=== PATIENT | male | born 1965 | race Caucasian/White ===

== ENCOUNTER 2016-10-14 01:56 | Inpatient (IN) | payer BC, OTHER ==
[~2016-10-14] VITALS: Ht 180.3 cm; Wt 122.8 kg
[~2016-10-14 01:56] MED LIST: DEPA250T2 PO; DILT180C56 PO; LAMO25 PO; LEVA500T PO; LEVE500 PO; LOTR15T TOP; PHEN100 PO; RISP0.252 OR; RISPM2 PO; SERO200T PO
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
[2016-10-14] MEDS ORDERED: SERO400T PO (02:26)
[2016-10-14] MEDS ORDERED: DIVA500T3 PO (02:26)
[2016-10-14] MEDS ORDERED: LOVA20TA PO (02:26)
[2016-10-14] MEDS ORDERED: RISP2TAB37 PO (02:26)
[2016-10-14] MEDS ORDERED: KEPP750T PO (02:26)
[2016-10-14] MEDS ORDERED: LAMO25CH CHEW (02:26)
[2016-10-14] MEDS ORDERED: DULO1CAP PO (02:26)
[2016-10-14 02:59] VITALS: BP 140/87; PULSE 102; RESP 18; O2SAT 96
[2016-10-14] MEDS ORDERED: DILA100C PO (04:21)
[2016-10-14] MEDS ORDERED: DORZ2SOL EACH EYE (04:45)
[2016-10-14] MEDS ORDERED: LATA0.002 EACH EYE (04:45)
[2016-10-14] MEDS ORDERED: CLOB0.055 TOPICAL (04:49)
[2016-10-14 06:21] VITALS: BP 161/82; PULSE 92; RESP 18; O2SAT 96
[2016-10-14] MEDS: DIVALPROEX SODIUM E.R. 500 MG TAB PO SCH ×2 (09:00→20:21)
[2016-10-14] MEDS ORDERED: risperiDONE 1 MG TAB PO SCH (09:00)
[2016-10-14] MEDS: lamoTRIgine 25 MG TAB PO SCH (09:00)
[2016-10-14] MEDS: levETIRAcetam 500 MG TAB PO SCH ×2 (09:00→20:20)
[2016-10-14] MEDS ORDERED: DULoxetine HCl DR 20 MG CAP PO SCH (09:00)
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
[2016-10-14] MEDS ORDERED: QUEtiapine FUMARATE 200 MG TAB PO ONE (09:15)
[2016-10-14 10:12] VITALS: BP 139/83; PULSE 93; RESP 18; O2SAT 96
[2016-10-14] MEDS ORDERED: MAGNESIUM HYDROXIDE SUSP 30 ML CUP PO PRN (10:15)
[2016-10-14] MEDS: DORZOLAMIDE 2% OPTH SOLN 200 DROP/10 ML BTLO EACH EYE SCH ×2 (10:15→20:19)
[2016-10-14] MEDS ORDERED: ACETAMINOPHEN 325 MG TAB PO PRN (10:15)
[2016-10-14] MEDS ORDERED: ALUMINUM/MAGNESIUM/SIMETH 30 ML CUP PO PRN (10:15)
[2016-10-14 11:02] VITALS: BP 148/90; PULSE 97; RESP 18; TEMP 97.9; O2SAT 97
[2016-10-14 16:47] VITALS: BP 150/94; PULSE 83; RESP 19; TEMP 98.4; O2SAT 98
[2016-10-14] MEDS: BETAMETHASONE DIPROPIONATE 0.05% CREAM 15 GM TOPICAL SCH (20:20)
[2016-10-14] MEDS: LATANOPROST 0.005% OPHT SOLN 2.5 ML BTL EACH EYE SCH (20:20)
[2016-10-14] MEDS: risperiDONE 1 MG TAB PO SCH (20:20)
[2016-10-14] MEDS: PHENYTOIN SODIUM 100 MG CAP PO SCH (20:21)
[2016-10-14] MEDS: PRAVASTATIN SOD 20 MG TAB PO SCH (20:21)
[2016-10-14] MEDS: QUEtiapine FUMARATE 200 MG TAB PO SCH (20:21)
[2016-10-14] MEDS ORDERED: QUEtiapine FUMARATE 200 MG TAB PO SCH (21:00)
[2016-10-14] MEDS ORDERED: CLOBETASOL TOPICAL SCH (21:00)
[2016-10-14] MEDS ORDERED: DIVALPROEX SODIUM E.R. 500 MG TAB PO SCH (21:00)
[2016-10-14] MEDS ORDERED: PRAVASTATIN SOD 20 MG TAB PO SCH (21:00)
[2016-10-14] MEDS ORDERED: levETIRAcetam 250 MG TAB PO SCH (21:00)
[2016-10-14] MEDS ORDERED: HALOPERIDOL LACTATE 5 MG/ML AMP IM ONE (22:15)
[2016-10-14] MEDS ORDERED: diphenhydrAMINE HCL 50 MG/ML VIAL IM ONE (22:15)
[2016-10-14] MEDS ORDERED: LORazepam 2 MG/ML VIAL IM ONE (22:15)
[2016-10-15] MEDS ORDERED: ACETAMINOPHEN 325 MG TAB PO PRN (08:00)
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
[2016-10-15] MEDS: BETAMETHASONE DIPROPIONATE 0.05% CREAM 15 GM TOPICAL SCH ×2 (09:00→21:24)
[2016-10-15] MEDS: DIVALPROEX SODIUM E.R. 500 MG TAB PO SCH ×2 (09:28→21:00)
[2016-10-15] MEDS: levETIRAcetam 500 MG TAB PO SCH ×2 (09:28→21:25)
[2016-10-15] MEDS: PHENYTOIN SODIUM 100 MG CAP PO SCH (09:28)
[2016-10-15] MEDS: risperiDONE 1 MG TAB PO SCH ×2 (09:28→21:25)
[2016-10-15] MEDS: DORZOLAMIDE 2% OPTH SOLN 200 DROP/10 ML BTLO EACH EYE SCH ×2 (09:29→21:24)
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
[2016-10-15] MEDS ORDERED: cloNIDine HCL 0.1 MG TAB PO PRN (14:45)
[2016-10-15] MEDS: THIAMINE HCL 100 MG TAB PO SCH (16:15)
[2016-10-15] MEDS: MULTIVITAMIN TAB PO SCH (16:15)
[2016-10-15] MEDS: FOLIC ACID 1 MG TAB PO SCH (16:15)
[2016-10-15 17:45] LABS: BASOPHIL # 0.1 TH/MM3 (0-0.2); BASOPHIL % 1.4 % (0.0-2.0); EOSINOPHIL # 0.1 TH/MM3 (0-0.4); EOSINOPHIL % 1.3 % (0.0-4.0); HEMATOCRIT 46.5 % (39.0-51.0); HEMO FLAGS DIFF FINAL; LYMPH % 26.3 % (9.0-44.0); LYMPHOCYTE # 1.7 TH/MM3 (1.0-4.8); MEAN CELL VOLUME 93.2 FL (80.0-100.0); MEAN CORPUSCULAR HEMOGLOBIN 31.9 PG (27.0-34.0); MEAN CORPUSCULAR HGB CONC 34.2 % (32.0-36.0); MONO % 6.7 % (0.0-8.0); NEUT % 64.3 % (16.0-70.0); PLATELET COUNT 188 TH/MM3 (150-450); RED CELL DISTRIBUTION WIDTH 13.1 % (11.6-17.2); WHITE BLOOD COUNT 6.3 TH/MM3 (4.0-11.0)
[2016-10-15 18:19] LABS: ANION GAP 9 MEQ/L (5-15); AST (GOT) 22 U/L (15-37); BICARBONATE 30.4 MEQ/L (21.0-32.0); BLOOD UREA NITROGEN 8 MG/DL (7-18); CHLORIDE 101 MEQ/L (98-107); GLOMERULAR FILTRATION RATE 89 ML/MIN (>89); POTASSIUM 3.8 MEQ/L (3.5-5.1); SODIUM (NA) 140 MEQ/L (136-145)
[2016-10-15 18:22] LABS: ALKALINE PHOSPHATASE 82 U/L (45-117); ALT (GPT) 30 U/L (12-78); TOTAL BILIRUBIN ADULT 0.3 MG/DL (0.2-1.0)
[2016-10-15 18:25] VITALS: BP 148/76; PULSE 102; RESP 18; TEMP 99; O2SAT 98
--- NOTE | 2016-10-15 20:33 | MG ---
cc: ECTOR DAVIDSON M.D. Lab No: [id number] Date: Age: 51 Sex: M Race: ROOM: [facility]. With photic stimulation. Eyes are open throughout the study, closed for photic stimulation. Awake. Last EEG in December of 2012 was abnormal with isolated spike wave discharge in the frontal lobe, left greater than right with encephalopathy. This is a 51-year-old man with increased hallucinations, schizophrenia, history of epilepsy. Seroquel, Depakote, Lamictal, Keppra, Risperdal. DESCRIPTION OF RECORD: He has overall mild slowing from the theta frequency. A lot of eye movement artifact. He keeps his eyes open throughout the study. He does not follow directions of the community planning technician. There are some sharps in the frontal regions seen on epoch 18. It is not continuous but it is visible. Otherwise the rest of the EEG reviewed and I do not see any further sharps, just a lot of artifact from him moving. On photic stimulation, there is a mild driving response. No sharp wave activity. IMPRESSION: Abnormal EEG with some mild slowing. There may be a theta frequency, may be medicine effect but he had an isolated sharps in one epoch in the frontal field which was seen at the last EEG as well. No active seizures however. Clinical correlation. MD CAROLINA Mcintosh/UMA /8:25 PM /8:28 PM
[2016-10-15] MEDS: QUEtiapine FUMARATE 200 MG TAB PO SCH (21:00)
[2016-10-15] MEDS: LATANOPROST 0.005% OPHT SOLN 2.5 ML BTL EACH EYE SCH (21:24)
[2016-10-15] MEDS: PRAVASTATIN SOD 20 MG TAB PO SCH (21:25)
[2016-10-16 06:16] VITALS: BP 134/81; PULSE 96; RESP 16; TEMP 97.7; O2SAT 100
[2016-10-16] MEDS: BETAMETHASONE DIPROPIONATE 0.05% CREAM 15 GM TOPICAL SCH ×2 (09:00→20:44)
[2016-10-16] MEDS: THIAMINE HCL 100 MG TAB PO SCH (09:00)
[2016-10-16] MEDS ORDERED: lamoTRIgine 25 MG TAB PO SCH (09:00)
[2016-10-16] MEDS: lamoTRIgine 25 MG TAB PO SCH (09:03)
[2016-10-16] MEDS: risperiDONE 1 MG TAB PO SCH ×2 (09:03→20:46)
[2016-10-16] MEDS: MULTIVITAMIN TAB PO SCH (09:03)
[2016-10-16] MEDS: DORZOLAMIDE 2% OPTH SOLN 200 DROP/10 ML BTLO EACH EYE SCH ×2 (09:04→20:44)
[2016-10-16] MEDS: DIVALPROEX SODIUM E.R. 500 MG TAB PO SCH ×2 (09:04→20:45)
[2016-10-16] MEDS: levETIRAcetam 500 MG TAB PO SCH ×2 (09:04→20:46)
[2016-10-16] MEDS: FOLIC ACID 1 MG TAB PO SCH (09:04)
--- NOTE | 2016-10-16 10:40 | HHI.PYPN ---
Subjective Remarks Patient seen in his room with nurse Mackenzie and counselor Chava, chart reviewed, patient compliant medications. Patient continues with auditory hallucinations though somewhat less threatening states he is "feeling better" he continues also disorganized continue to show cognitive deficits related to his TBI. For now continue treatment Review of Systems Except as stated in HPI: all other systems reviewed are Neg Objective Alert: Yes [place]: Person, Date Mood: Other (restless, impulsive ) Affect: Blunted, Tearful Memory Intact: Comment (Appears impaired. Distracted) Hallucinations: Auditory (telling him to flush himself down the toilet. ) Delusions: Yes Delusion Type: Paranoid Suicidal: Ideation (unable to assess) Homicidal: Ideation (unable to assess) Insight/Judgment Very poor Labs Test 10/15/16 10/16/16 17:22 07:08 White Blood Count 6.3 TH/MM3 Red Blood Count 5.00 MIL/MM3 Hemoglobin 15.9 GM/DL Hematocrit 46.5 % Mean Corpuscular Volume 93.2 FL Mean Corpuscular Hemoglobin 31.9 PG Mean Corpuscular Hemoglobin 34.2 % Concent Red Cell Distribution Width 13.1 % Platelet Count 188 TH/MM3 Mean Platelet Volume 7.8 FL Neutrophils (%) (Auto) 64.3 % Lymphocytes (%) (Auto) 26.3 % Monocytes (%) (Auto) 6.7 % Eosinophils (%) (Auto) 1.3 % Basophils (%) (Auto) 1.4 % Neutrophils # (Auto) 4.0 TH/MM3 Lymphocytes # (Auto) 1.7 TH/MM3 Monocytes # (Auto) 0.4 TH/MM3 Eosinophils # (Auto) 0.1 TH/MM3 Basophils # (Auto) 0.1 TH/MM3 CBC Comment DIFF FINAL Differential Comment Sodium Level 140 MEQ/L Potassium Level 3.8 MEQ/L Chloride Level 101 MEQ/L Carbon Dioxide Level 30.4 MEQ/L Anion Gap 9 MEQ/L Blood Urea Nitrogen 8 MG/DL Creatinine 0.90 MG/DL Estimat Glomerular Filtration 89 ML/MIN Rate Random Glucose 172 MG/DL Calcium Level 9.1 MG/DL Total Bilirubin 0.3 MG/DL Aspartate Amino Transf 22 U/L (AST/SGOT) Alanine Aminotransferase 30 U/L (ALT/SGPT) Alkaline Phosphatase 82 U/L Total Protein 7.4 GM/DL Albumin 4.2 GM/DL Lipase 130 U/L Phenytoin (Dilantin) Level 17.3 MCG/ML 15.3 MCG/ML Vitals/IOs Vital Signs Date Time Temp Pulse Resp B/P Pulse Ox O2 Delivery O2 Flow Rate FiO2 10/16/16 06:16 97.7 96 16 134/81 100 10/14/16 10:12 Room Air Assessment & Plan Problem List: (1) History of traumatic brain injury ICD Code: Z87.820 (2) Paranoid type schizophrenia, chronic state ICD Code: F20.0 Assessment & Plan Estimated LOS: days patient continues psychotic somewhat paranoid, though the cognitive deficits related to the TBI also continue. For now continue treatment Justification for Cont. Inpt. At this time patient will decompensate if placed in a lower level of care Discharge Planning To be determined Request HC Surrog/Guard Advoc?: Yes Kennedy Hopkins MD October 16, 2016 10:40
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
--- NOTE | 2016-10-16 14:39 | HHI.PR ---
Subjective Remarks The pt was ambulating the echavarria. He had no acute complaints. Objective Vitals Vital Signs Date Time Temp Pulse Resp B/P Pulse Ox O2 Delivery O2 Flow Rate FiO2 10/16/16 06:16 97.7 96 16 134/81 100 10/15/16 18:25 99.0 102 18 148/76 98 Result Diagram: 10/15/16 1722 10/15/16 1722 Objective Remarks GENERAL: This is an obese, well-developed patient, in no apparent distress. SKIN: erythematous facial area - rosacea appearing. Warm and dry. HEAD: Normocephalic. EYES: Pupils equal round and reactive. Extraocular motions intact. No scleral icterus. No injection or drainage. ENT: Nose without bleeding. Throat without erythema. Uvula midline. Airway patent. NECK: Trachea midline. No JVD or lymphadenopathy. CARDIOVASCULAR: Regular rate and rhythm without murmurs, gallops, or rubs. RESPIRATORY: Clear to auscultation. Breath sounds equal bilaterally. No wheezes , rales, or rhonchi. GASTROINTESTINAL: Abdomen soft, nondistended. Pt. was moaning and groaning with hand placement in his abdomen but reports no pain when interviewed. MUSCULOSKELETAL: Extremities without clubbing, cyanosis, or edema. NEUROLOGICAL: Awake and alert. Motor and sensory grossly within normal limits. Normal speech. Medications and IVs Current Medications Medications (Trade) Dose Ordered Sig/Ritesh Route Start Time Stop Time Status Last Admin (Depakote Er) 500 mg BID PO 10/14/16 09:00 10/16/16 09:04 (Keppra) 1,500 mg BID PO 10/14/16 09:00 10/16/16 09:04 (SEROquel) 800 mg HS PO 10/14/16 21:00 10/15/16 21:00 (Pravachol) 20 mg HS PO 10/14/16 21:00 10/15/16 21:25 (Cymbalta Dr) 20 mg BID PO 10/14/16 09:00 Hold (Tylenol) 650 mg Q4H PRN PO 10/14/16 10:15 (Milk Of Magnesia Liq) 30 ml DAILY PRN PO 10/14/16 10:15 (Mag-Al Plus Susp Liq) 30 ml Q6H PRN PO 10/14/16 10:15 (Trusopt 2% Opth Soln) 1 drop BID EACH EYE 10/14/16 10:15 10/16/16 09:04 (Xalatan 0.005% Opth Soln) 1 drop HS EACH EYE 10/14/16 21:00 10/15/16 21:24 (risperDAL) 2 mg BID PO 10/14/16 21:00 10/16/16 09:03 (Diprosone 0.05% Cream) 1 applic BID TOPICAL 10/14/16 21:00 10/16/16 09:00 (Catapres) 0.1 mg Q6H PRN PO 10/15/16 14:45 (Vitamin B1) 100 mg DAILY PO 10/15/16 15:00 10/16/16 09:00 (Folate) 1 mg DAILY PO 10/15/16 15:00 10/16/16 09:04 (Theragran) 1 tab DAILY PO 10/15/16 15:00 10/16/16 09:03 (Dilantin) 300 mg HS PO 10/16/16 21:00 (Dilantin) 200 mg DAILY PO 10/17/16 09:00 A/P Problem List: (1) schizophrenia chronic paranoid type Status: Acute Assessment and Plan Patient is a 51-year-old male with history of schizophrenia, seen and evaluated at [facility], presents to the emergency department as a transfer for psychiatric evaluation. As per review of record, patient had increased confusion, inappropriate sexual behavior, confused and possibly having some auditory hallucinations. He is now admitted to inpatient psychiatry unit for further evaluation. Consulted for medical management. Schizophrenia, hallucinations - managed by psychiatry team Seizures - Patient has a history of seizures since 2012, currently on Keppra, Depakote , Lamictal, Dilantin - Neuro consult appreciated. Continue Keppra and Depakote. D/c Lamictal. Change Dilantin per neuro. Follow levels. - Seizure precautions. - EEG with slowing but no seizure activity. History of HTN, DM 2 - Not on any medications - Last A1c from 2012 was 6.1% - Monitor vitals Altered mental status, metabolic encephalopathy Likely s/t psych condition. - UA DVT prop ambulatory Delvin Thompson DO October 16, 2016 14:39
[2016-10-16 18:00] VITALS: BP 139/74; PULSE 95; RESP 16; TEMP 97.8; O2SAT 99
[2016-10-16] MEDS: PRAVASTATIN SOD 20 MG TAB PO SCH (20:45)
[2016-10-16] MEDS: PHENYTOIN SODIUM 100 MG CAP PO SCH (20:45)
[2016-10-16] MEDS: LATANOPROST 0.005% OPHT SOLN 2.5 ML BTL EACH EYE SCH (20:45)
[2016-10-16] MEDS: QUEtiapine FUMARATE 200 MG TAB PO SCH (20:46)
[2016-10-17 06:10] VITALS: BP 139/83; PULSE 88; RESP 18; TEMP 97; O2SAT 97
[2016-10-17] MEDS: FOLIC ACID 1 MG TAB PO SCH (07:51)
[2016-10-17] MEDS: risperiDONE 1 MG TAB PO SCH ×2 (07:51→20:56)
[2016-10-17] MEDS: DIVALPROEX SODIUM E.R. 500 MG TAB PO SCH ×2 (07:52→20:56)
[2016-10-17] MEDS: levETIRAcetam 500 MG TAB PO SCH ×2 (07:52→20:56)
[2016-10-17] MEDS: MULTIVITAMIN TAB PO SCH (07:52)
[2016-10-17] MEDS: DORZOLAMIDE 2% OPTH SOLN 200 DROP/10 ML BTLO EACH EYE SCH ×2 (07:52→20:55)
[2016-10-17] MEDS: PHENYTOIN SODIUM 100 MG CAP PO SCH ×2 (07:53→20:57)
[2016-10-17] MEDS: THIAMINE HCL 100 MG TAB PO SCH (07:53)
[2016-10-17] MEDS: BETAMETHASONE DIPROPIONATE 0.05% CREAM 15 GM TOPICAL SCH ×2 (07:54→20:55)
--- NOTE | 2016-10-17 11:43 | HHI.PYPN ---
Subjective Remarks Patient seen in day room with nurse Teena, chart review, Dilantin level drawn yesterday 15.1 will continue at that dose at this time. She is appear under control. We need to check Depakote level tomorrow also. Patient continues with severely delayed responses were marked thought blocking acknowledges continued auditory hallucinations. For now continue treatment no change checking Depakote level over tomorrow Review of Systems Except as stated in HPI: all other systems reviewed are Neg Objective Alert: Yes [place]: Person, Date Mood: Other (restless, impulsive ) Affect: Blunted, Tearful Memory Intact: Comment (Appears impaired. Distracted) Hallucinations: Auditory (telling him to flush himself down the toilet. ) Delusions: Yes Delusion Type: Paranoid Suicidal: Ideation (unable to assess) Homicidal: Ideation (unable to assess) Insight/Judgment Poor Vitals/IOs Vital Signs Date Time Temp Pulse Resp B/P Pulse Ox O2 Delivery O2 Flow Rate FiO2 10/17/16 06:10 97.0 88 18 139/83 97 10/14/16 10:12 Room Air Assessment & Plan Problem List: (1) History of traumatic brain injury ICD Code: Z87.820 (2) Paranoid type schizophrenia, chronic state ICD Code: F20.0 Assessment & Plan Estimated LOS: days patient continue psychotic, will recheck Depakote level over in a.m., Dilantin level appears within normal limits at 15.1. Justification for Cont. Inpt. At this time patient will decompensate the placed in a lower level of care Discharge Planning To be determined Request HC Surrog/Guard Advoc?: Yes Kennedy Hopkins MD October 17, 2016 11:43
[2016-10-17 20:44] VITALS: BP 152/87; PULSE 78; RESP 18; TEMP 98.3; O2SAT 99
[2016-10-17] MEDS: LATANOPROST 0.005% OPHT SOLN 2.5 ML BTL EACH EYE SCH (20:55)
[2016-10-17] MEDS: QUEtiapine FUMARATE 200 MG TAB PO SCH (20:56)
[2016-10-17] MEDS: PRAVASTATIN SOD 20 MG TAB PO SCH (20:56)
[2016-10-18 06:07] VITALS: BP 138/88; PULSE 99; RESP 18; TEMP 97.5; O2SAT 97
[2016-10-18 08:22] LABS: ANION GAP 10 MEQ/L (5-15); BICARBONATE 30.9 MEQ/L (21.0-32.0); BLOOD UREA NITROGEN 10 MG/DL (7-18); CHLORIDE 103 MEQ/L (98-107); GLOMERULAR FILTRATION RATE 104 ML/MIN (>89); POTASSIUM 3.7 MEQ/L (3.5-5.1); SODIUM (NA) 144 MEQ/L (136-145)
[2016-10-18] MEDS: BETAMETHASONE DIPROPIONATE 0.05% CREAM 15 GM TOPICAL SCH ×2 (09:00→20:26)
[2016-10-18] MEDS: THIAMINE HCL 100 MG TAB PO SCH (09:00)
[2016-10-18] MEDS: DIVALPROEX SODIUM E.R. 500 MG TAB PO SCH ×2 (09:20→20:22)
[2016-10-18] MEDS: PHENYTOIN SODIUM 100 MG CAP PO SCH ×2 (09:20→20:24)
[2016-10-18] MEDS: FOLIC ACID 1 MG TAB PO SCH (09:20)
[2016-10-18] MEDS: DORZOLAMIDE 2% OPTH SOLN 200 DROP/10 ML BTLO EACH EYE SCH ×2 (09:20→20:25)
[2016-10-18] MEDS: MULTIVITAMIN TAB PO SCH (09:21)
[2016-10-18] MEDS: lamoTRIgine 25 MG TAB PO SCH (09:21)
[2016-10-18] MEDS: levETIRAcetam 500 MG TAB PO SCH ×2 (09:21→20:21)
[2016-10-18] MEDS: risperiDONE 1 MG TAB PO SCH ×2 (09:21→20:22)
[2016-10-18 11:26] LABS: HEMOGLOBIN A1a 0.9 %; HEMOGLOBIN A1b 1.2 %; HEMOGLOBIN Ao 87.5 %; HEMOGLOBIN LA1C 1.8 %; HEMOGLOBIN P3 3.3 %
--- NOTE | 2016-10-18 15:18 | HHI.PR ---
Addendum to Inpatient Note Addendum Reason: Additional Documentation Additional Information Labs reviewed and vital signs have been reviewed - within normal limits. Patient does not have diabetes. We'll sign off for now. Stable from Hospitalist standpoint. We will sign off. Reconsult as needed. Discussed with nursing, Tulio Martinez October 18, 2016 15:18
--- NOTE | 2016-10-18 16:12 | HHI.PYPN ---
Subjective Remarks Patient seen in day room with nurse Monica, patient calm though at times appears to be moderately psychomotor retarded, his responses are markedly delayed at times nonexistent. He is no behavior problems with this. Patient compliant medications patient scheduled for [employer] tomorrow Review of Systems Except as stated in HPI: all other systems reviewed are Neg Objective Alert: Yes [place]: Person, Date Mood: Other (restless, impulsive ) Affect: Blunted, Tearful Memory Intact: Comment (Appears impaired. Distracted) Hallucinations: Auditory (telling him to flush himself down the toilet. ) Delusions: Yes Delusion Type: Paranoid Suicidal: Ideation (unable to assess) Homicidal: Ideation (unable to assess) Insight/Judgment Very poor Labs Test 10/18/16 07:10 Sodium Level 144 MEQ/L Potassium Level 3.7 MEQ/L Chloride Level 103 MEQ/L Carbon Dioxide Level 30.9 MEQ/L Anion Gap 10 MEQ/L Blood Urea Nitrogen 10 MG/DL Creatinine 0.79 MG/DL Estimat Glomerular Filtration 104 ML/MIN Rate Random Glucose 89 MG/DL Hemoglobin A1c 4.9 % Calcium Level 9.6 MG/DL Vitals/IOs Vital Signs Date Time Temp Pulse Resp B/P Pulse Ox O2 Delivery O2 Flow Rate FiO2 10/18/16 06:07 97.5 99 18 138/88 97 10/14/16 10:12 Room Air Assessment & Plan Problem List: (1) History of traumatic brain injury ICD Code: Z87.820 (2) Paranoid type schizophrenia, chronic state ICD Code: F20.0 Assessment & Plan Estimated LOS: days patient remained psychotic the marked thought blocking as if responding to internal stimuli. Though no significant behavioral problems noted patient scheduled for [employer] tomorrow Justification for Cont. Inpt. At this time patient will decompensate placed in a lower level of care Discharge Planning To be determined Request HC Surrog/Guard Advoc?: Yes Kennedy Hopkins MD October 18, 2016 16:12
[2016-10-18 18:09] VITALS: BP 155/89; PULSE 96; RESP 18; TEMP 97.3; O2SAT 99
[2016-10-18] MEDS: QUEtiapine FUMARATE 200 MG TAB PO SCH (20:21)
[2016-10-18] MEDS: PRAVASTATIN SOD 20 MG TAB PO SCH (20:25)
[2016-10-18] MEDS: LATANOPROST 0.005% OPHT SOLN 2.5 ML BTL EACH EYE SCH (20:25)
[2016-10-19 05:42] VITALS: BP 112/62; PULSE 83; RESP 16; TEMP 97.8; O2SAT 100
[2016-10-19] MEDS: THIAMINE HCL 100 MG TAB PO SCH (09:00)
[2016-10-19] MEDS: FOLIC ACID 1 MG TAB PO SCH (09:37)
[2016-10-19] MEDS: MULTIVITAMIN TAB PO SCH (09:37)
[2016-10-19] MEDS: risperiDONE 1 MG TAB PO SCH ×2 (09:37→21:00)
[2016-10-19] MEDS: PHENYTOIN SODIUM 100 MG CAP PO SCH ×2 (09:38→21:00)
[2016-10-19] MEDS: DORZOLAMIDE 2% OPTH SOLN 200 DROP/10 ML BTLO EACH EYE SCH ×2 (09:38→21:00)
[2016-10-19] MEDS: BETAMETHASONE DIPROPIONATE 0.05% CREAM 15 GM TOPICAL SCH ×2 (09:38→21:00)
[2016-10-19] MEDS: levETIRAcetam 500 MG TAB PO SCH ×2 (09:38→21:00)
[2016-10-19] MEDS: DIVALPROEX SODIUM E.R. 500 MG TAB PO SCH ×2 (09:38→21:00)
[2016-10-19 15:14] VITALS: BP 127/75; PULSE 101; RESP 18; TEMP 98.4; O2SAT 100
--- NOTE | 2016-10-19 16:07 | HHI.PYPN ---
Subjective Remarks Patient seen in [address], also present patient's cousin was health care surrogate, patient case continue for 4 weeks per Fixer Supervisor Selene. Patient continues significant thought blocking articulators and responses as if responding to internal stimuli responses he does have a very brief 1-2 words. There is also minimal affect noted and his facial expression. Will increase scheduled Respinol from 2 mg twice a day to 3 mg twice a day Review of Systems Except as stated in HPI: all other systems reviewed are Neg Objective Alert: Yes [place]: Person, Date Mood: Other (restless, impulsive ) Affect: Blunted, Tearful Memory Intact: Comment (Appears impaired. Distracted) Hallucinations: Auditory (telling him to flush himself down the toilet. ) Delusions: Yes Delusion Type: Paranoid Suicidal: Ideation (unable to assess) Homicidal: Ideation (unable to assess) Insight/Judgment Very poor Vitals/IOs Vital Signs Date Time Temp Pulse Resp B/P Pulse Ox O2 Delivery O2 Flow Rate FiO2 10/19/16 15:14 98.4 101 18 127/75 100 Assessment & Plan Problem List: (1) History of traumatic brain injury ICD Code: Z87.820 (2) Paranoid type schizophrenia, chronic state ICD Code: F20.0 Assessment & Plan Estimated LOS: days patient continues psychotic marked thought blocking Yasmin medication adjustment above Justification for Cont. Inpt. At this time patient will decompensate placed in a lower level of care Discharge Planning To be determined Request HC Surrog/Guard Advoc?: Yes Kennedy Hopkins MD October 19, 2016 16:07
[2016-10-19] MEDS: LATANOPROST 0.005% OPHT SOLN 2.5 ML BTL EACH EYE SCH (21:00)
[2016-10-19] MEDS: QUEtiapine FUMARATE 200 MG TAB PO SCH (21:00)
[2016-10-19] MEDS: PRAVASTATIN SOD 20 MG TAB PO SCH (21:00)
[2016-10-20 06:26] VITALS: BP 141/87; PULSE 100; RESP 18; TEMP 98.1; O2SAT 97
[2016-10-20] MEDS: BETAMETHASONE DIPROPIONATE 0.05% CREAM 15 GM TOPICAL SCH ×2 (09:00→20:18)
[2016-10-20] MEDS: THIAMINE HCL 100 MG TAB PO SCH (09:00)
[2016-10-20] MEDS: levETIRAcetam 500 MG TAB PO SCH ×2 (09:06→20:24)
[2016-10-20] MEDS: PHENYTOIN SODIUM 100 MG CAP PO SCH ×2 (09:06→20:19)
[2016-10-20] MEDS: DORZOLAMIDE 2% OPTH SOLN 200 DROP/10 ML BTLO EACH EYE SCH ×2 (09:06→20:18)
[2016-10-20] MEDS: DIVALPROEX SODIUM E.R. 500 MG TAB PO SCH ×2 (09:06→20:18)
[2016-10-20] MEDS: risperiDONE 1 MG TAB PO SCH ×2 (09:07→20:20)
[2016-10-20] MEDS: lamoTRIgine 25 MG TAB PO SCH (09:08)
[2016-10-20] MEDS: MULTIVITAMIN TAB PO SCH (09:08)
[2016-10-20] MEDS: FOLIC ACID 1 MG TAB PO SCH (09:08)
--- NOTE | 2016-10-20 15:25 | HHI.PYPN ---
Subjective Remarks Patient seen in [place] with nurse Jyoti, patient continues showing marked thought blocking articulation responses responses at times brief markedly disorganized. Compliant medications. Review of Systems Except as stated in HPI: all other systems reviewed are Neg Objective Alert: Yes [place]: Person, Date Mood: Other (restless, impulsive ) Affect: Blunted, Tearful Memory Intact: Comment (Appears impaired. Distracted) Hallucinations: Auditory (telling him to flush himself down the toilet. 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 Inpt. At this time patient will decompensate placed in a lower level of care Discharge Planning To be determined Request HC Surrog/Guard Advoc?: Yes Kennedy Hopkins MD October 20, 2016 15:25
[2016-10-20 18:18] VITALS: BP 137/75; PULSE 91; RESP 16; TEMP 98.8; O2SAT 98
[2016-10-20] MEDS: LATANOPROST 0.005% OPHT SOLN 2.5 ML BTL EACH EYE SCH (20:17)
[2016-10-20] MEDS: QUEtiapine FUMARATE 200 MG TAB PO SCH (20:20)
[2016-10-20] MEDS: PRAVASTATIN SOD 20 MG TAB PO SCH (20:20)
[2016-10-21 06:13] VITALS: BP 160/82; PULSE 97; RESP 18; TEMP 97.5; O2SAT 100
[2016-10-21] MEDS: FOLIC ACID 1 MG TAB PO SCH (08:27)
[2016-10-21] MEDS: MULTIVITAMIN TAB PO SCH (08:27)
[2016-10-21] MEDS: risperiDONE 1 MG TAB PO SCH ×2 (08:27→21:00)
[2016-10-21] MEDS: PHENYTOIN SODIUM 100 MG CAP PO SCH ×2 (08:27→21:00)
[2016-10-21] MEDS: THIAMINE HCL 100 MG TAB PO SCH (08:27)
[2016-10-21] MEDS: levETIRAcetam 500 MG TAB PO SCH ×2 (08:28→21:00)
[2016-10-21] MEDS: DIVALPROEX SODIUM E.R. 500 MG TAB PO SCH ×2 (08:28→21:00)
[2016-10-21] MEDS: DORZOLAMIDE 2% OPTH SOLN 200 DROP/10 ML BTLO EACH EYE SCH ×2 (08:28→21:00)
[2016-10-21] MEDS: BETAMETHASONE DIPROPIONATE 0.05% CREAM 15 GM TOPICAL SCH ×2 (08:47→21:00)
--- NOTE | 2016-10-21 14:48 | HHI.PYPN ---
Subjective Remarks Patient was seen and case discussed with nursing. Patient remains confused and disheveled. Moderate thought blocking while admitting his hearing hallucinations during our conversation. Continues to be disorganized taking a shower with disclose on per nursing. This compliant with his medications. Could not tell me what the voices are saying. Denies suicidal ideation intent or plan Objective Alert: Yes [place]: Person Mood: Other (impulsive) Affect: Blunted Memory Intact: Comment (Appears impaired. Distracted) Hallucinations: Auditory (would not specify but hearing them) Delusions: Yes Delusion Type: Paranoid (responding to internal stimuli) Suicidal: Ideation (unable to assess) Homicidal: Ideation (unable to assess) Insight/Judgment Poor Vitals/IOs Vital Signs Date Time Temp Pulse Resp B/P Pulse Ox O2 Delivery O2 Flow Rate FiO2 10/21/16 06:13 97.5 97 18 160/82 100 Assessment & Plan Problem List: (1) History of traumatic brain injury ICD Code: Z87.820 (2) Paranoid type schizophrenia, chronic state ICD Code: F20.0 Assessment & Plan Continue current treatment plan Justification for Cont. Inpt. Patient will decompensate in a less restrictive setting Request HC Surrog/Guard Advoc?: Yes Rodriguez Flores DO October 21, 2016 14:48
[2016-10-21 18:11] VITALS: BP 127/82; PULSE 98; RESP 18; TEMP 97.5; O2SAT 100
[2016-10-21] MEDS: QUEtiapine FUMARATE 200 MG TAB PO SCH (21:00)
[2016-10-21] MEDS: LATANOPROST 0.005% OPHT SOLN 2.5 ML BTL EACH EYE SCH (21:00)
[2016-10-21] MEDS: PRAVASTATIN SOD 20 MG TAB PO SCH (21:00)
[2016-10-22 06:26] VITALS: BP 151/97; PULSE 100; RESP 17; TEMP 97.4; O2SAT 99
[2016-10-22] MEDS: FOLIC ACID 1 MG TAB PO SCH (08:12)
[2016-10-22] MEDS: risperiDONE 1 MG TAB PO SCH ×2 (08:12→20:46)
[2016-10-22] MEDS: PHENYTOIN SODIUM 100 MG CAP PO SCH ×2 (08:13→20:46)
[2016-10-22] MEDS: BETAMETHASONE DIPROPIONATE 0.05% CREAM 15 GM TOPICAL SCH ×2 (08:13→20:48)
[2016-10-22] MEDS: levETIRAcetam 500 MG TAB PO SCH ×2 (08:13→20:47)
[2016-10-22] MEDS: THIAMINE HCL 100 MG TAB PO SCH (08:13)
[2016-10-22] MEDS: MULTIVITAMIN TAB PO SCH (08:13)
[2016-10-22] MEDS: DIVALPROEX SODIUM E.R. 500 MG TAB PO SCH ×2 (08:13→20:47)
[2016-10-22] MEDS: DORZOLAMIDE 2% OPTH SOLN 200 DROP/10 ML BTLO EACH EYE SCH ×2 (08:13→20:47)
[2016-10-22] MEDS: lamoTRIgine 25 MG TAB PO SCH (08:13)
--- NOTE | 2016-10-22 15:25 | HHI.PYPN ---
Subjective Remarks Patient was seen and case discussed with nursing. Patient is more interactive and more verbal compared to yesterday. Says he still feels depressed and "hopeless." Remains flat and apathetic. Voices are "I hear stuff." He could not tell me anything specific. No specific delusions elicited. Appears to be responding to internal stimuli Objective Alert: Yes [place]: Person, Place Mood: Depressed Affect: Flat Memory Intact: Comment (Appears impaired. Distracted) Hallucinations: Auditory (would not specify but hearing them) Delusions: Yes Delusion Type: Paranoid (responding to internal stimuli) Suicidal: Ideation (unable to assess) Homicidal: Ideation (unable to assess) Insight/Judgment Poor Vitals/IOs Vital Signs Date Time Temp Pulse Resp B/P Pulse Ox O2 Delivery O2 Flow Rate FiO2 10/22/16 06:26 97.4 100 17 151/97 99 Assessment & Plan Problem List: (1) History of traumatic brain injury ICD Code: Z87.820 (2) Paranoid type schizophrenia, chronic state ICD Code: F20.0 Assessment & Plan Continue current treatment plan Justification for Cont. Inpt. Patient will decompensate in a less restrictive setting Request HC Surrog/Guard Advoc?: Yes Rodriguez Flores DO October 22, 2016 15:25
[2016-10-22 20:05] VITALS: BP 125/93; PULSE 90; RESP 18; TEMP 98.6; O2SAT 99
[2016-10-22] MEDS: PRAVASTATIN SOD 20 MG TAB PO SCH (20:45)
[2016-10-22] MEDS: QUEtiapine FUMARATE 200 MG TAB PO SCH (20:46)
[2016-10-22] MEDS: LATANOPROST 0.005% OPHT SOLN 2.5 ML BTL EACH EYE SCH (20:47)
[2016-10-23 06:08] VITALS: BP 140/90; PULSE 100; RESP 19; TEMP 98; O2SAT 97
[2016-10-23] MEDS: levETIRAcetam 500 MG TAB PO SCH ×2 (08:18→20:26)
[2016-10-23] MEDS: THIAMINE HCL 100 MG TAB PO SCH (08:18)
[2016-10-23] MEDS: MULTIVITAMIN TAB PO SCH (08:18)
[2016-10-23] MEDS: PHENYTOIN SODIUM 100 MG CAP PO SCH ×2 (08:19→20:26)
[2016-10-23] MEDS: risperiDONE 1 MG TAB PO SCH ×2 (08:19→20:26)
[2016-10-23] MEDS: DIVALPROEX SODIUM E.R. 500 MG TAB PO SCH ×2 (08:19→20:25)
[2016-10-23] MEDS: FOLIC ACID 1 MG TAB PO SCH (08:19)
[2016-10-23] MEDS: DORZOLAMIDE 2% OPTH SOLN 200 DROP/10 ML BTLO EACH EYE SCH ×2 (08:21→20:27)
[2016-10-23] MEDS: BETAMETHASONE DIPROPIONATE 0.05% CREAM 15 GM TOPICAL SCH ×2 (08:21→20:27)
--- NOTE | 2016-10-23 17:37 | HHI.PYPN ---
Subjective Remarks Patient seen in [place] with nurse Ramon, chart reviewed, patient showing more animation in affect today than last week. He is more verbal appropriate and goal oriented in his speech. It also showed a small touch of humor. For now continue treatment Review of Systems Except as stated in HPI: all other systems reviewed are Neg Objective Alert: Yes [place]: Person, Place Mood: Depressed Affect: Flat Memory Intact: Comment (Appears impaired. Distracted) Hallucinations: Auditory (would not specify but hearing them) Delusions: Yes Delusion Type: Paranoid (responding to internal stimuli) Suicidal: Ideation (unable to assess) Homicidal: Ideation (unable to assess) Insight/Judgment Poor Vitals/IOs Vital Signs Date Time Temp Pulse Resp B/P Pulse Ox O2 Delivery O2 Flow Rate FiO2 10/23/16 06:08 98.0 100 19 140/90 97 Assessment & Plan Problem List: (1) History of traumatic brain injury ICD Code: Z87.820 (2) Paranoid type schizophrenia, chronic state ICD Code: F20.0 Assessment & Plan Estimated LOS: days patient showing some slight increased focus affect and mood. Better eye contact also. For now continue treatment Justification for Cont. Inpt. This time patient will decompensate if placed in a lower level of care Discharge Planning To be determined Request HC Surrog/Guard Advoc?: Yes Kennedy Hopkins MD October 23, 2016 17:37
[2016-10-23 19:00] VITALS: BP 150/78; PULSE 108; RESP 18; TEMP 98.2; O2SAT 98
[2016-10-23] MEDS: PRAVASTATIN SOD 20 MG TAB PO SCH (20:26)
[2016-10-23] MEDS: QUEtiapine FUMARATE 200 MG TAB PO SCH (20:26)
[2016-10-23] MEDS: LATANOPROST 0.005% OPHT SOLN 2.5 ML BTL EACH EYE SCH (20:27)
[2016-10-24 05:45] VITALS: BP 129/91; PULSE 102; RESP 18; TEMP 97.4; O2SAT 99
[2016-10-24] MEDS: DIVALPROEX SODIUM E.R. 500 MG TAB PO SCH ×2 (08:20→20:13)
[2016-10-24] MEDS: MULTIVITAMIN TAB PO SCH (08:20)
[2016-10-24] MEDS: FOLIC ACID 1 MG TAB PO SCH (08:20)
[2016-10-24] MEDS: THIAMINE HCL 100 MG TAB PO SCH (08:20)
[2016-10-24] MEDS: risperiDONE 1 MG TAB PO SCH ×2 (08:20→20:14)
[2016-10-24] MEDS: DORZOLAMIDE 2% OPTH SOLN 200 DROP/10 ML BTLO EACH EYE SCH ×2 (08:21→20:13)
[2016-10-24] MEDS: levETIRAcetam 500 MG TAB PO SCH ×2 (08:21→20:14)
[2016-10-24] MEDS: PHENYTOIN SODIUM 100 MG CAP PO SCH ×2 (08:21→20:15)
[2016-10-24] MEDS: lamoTRIgine 25 MG TAB PO SCH (08:21)
[2016-10-24] MEDS: BETAMETHASONE DIPROPIONATE 0.05% CREAM 15 GM TOPICAL SCH ×2 (08:22→20:13)
--- NOTE | 2016-10-24 12:53 | HHI.PYPN ---
Subjective Remarks Patient seen in [place] with counselor Chava, patient continues to show some increased focus better eye contact improved affect. Compliant medications. We did discuss continue placement issues. Patient does feel reluctance to return to independent living. He feels placement [facility] best alternative for him at this time. It appears his cousin who is his guardian advocate agrees with this Review of Systems Except as stated in HPI: all other systems reviewed are Neg Objective Alert: Yes [place]: Person, Place Mood: Depressed Affect: Flat Memory Intact: Comment (Appears impaired. Distracted) Hallucinations: Auditory (would not specify but hearing them) Delusions: Yes Delusion Type: Paranoid (responding to internal stimuli) Suicidal: Ideation (unable to assess) Homicidal: Ideation (unable to assess) Insight/Judgment Poor Vitals/IOs Vital Signs Date Time Temp Pulse Resp B/P Pulse Ox O2 Delivery O2 Flow Rate FiO2 10/24/16 05:45 97.4 102 18 129/91 99 Assessment & Plan Problem List: (1) History of traumatic brain injury ICD Code: Z87.820 (2) Paranoid type schizophrenia, chronic state ICD Code: F20.0 Assessment & Plan Estimated LOS: days patient showing some improvement, while his cognitive issues remain he suing some improvement in this verbalization. Affect. More spontaneous responses Justification for Cont. Inpt. At this time patient will decompensate if placed in a lower level of care Discharge Planning To be determined Request HC Surrog/Guard Advoc?: Yes Kennedy Hopkins MD October 24, 2016 12:53
[2016-10-24] MEDS: LATANOPROST 0.005% OPHT SOLN 2.5 ML BTL EACH EYE SCH (20:13)
[2016-10-24] MEDS: PRAVASTATIN SOD 20 MG TAB PO SCH (20:14)
[2016-10-24] MEDS: QUEtiapine FUMARATE 200 MG TAB PO SCH (20:14)
[2016-10-25 06:00] VITALS: BP 130/70; PULSE 112; RESP 18; TEMP 97.1; O2SAT 96
[2016-10-25] MEDS: MULTIVITAMIN TAB PO SCH (09:10)
[2016-10-25] MEDS: risperiDONE 1 MG TAB PO SCH ×2 (09:10→20:30)
[2016-10-25] MEDS: DIVALPROEX SODIUM E.R. 500 MG TAB PO SCH ×2 (09:10→20:32)
[2016-10-25] MEDS: DORZOLAMIDE 2% OPTH SOLN 200 DROP/10 ML BTLO EACH EYE SCH ×2 (09:11→20:28)
[2016-10-25] MEDS: BETAMETHASONE DIPROPIONATE 0.05% CREAM 15 GM TOPICAL SCH ×2 (09:11→20:33)
[2016-10-25] MEDS: levETIRAcetam 500 MG TAB PO SCH ×2 (09:11→20:32)
[2016-10-25] MEDS: THIAMINE HCL 100 MG TAB PO SCH (09:11)
[2016-10-25] MEDS: PHENYTOIN SODIUM 100 MG CAP PO SCH ×2 (09:11→20:29)
[2016-10-25] MEDS: FOLIC ACID 1 MG TAB PO SCH (09:11)
--- NOTE | 2016-10-25 14:10 | HHI.PYPN ---
Subjective Remarks Patient seen in day room with nurse Monica, chart reviewed. Patient continues calm cooperative and appropriate with good eye contact. His speech rate and rhythm are within normal limits at this time was no thought blocking noted though no real speech delays noted. He continues to agree to RESIDENTIAL placement. I also call patient's cousin and guardian at [facility] at [phone] where fairly lengthy conversation about patient patient's history various mental health issues. Mr. Ramos feels also the patient is doing good he agrees that a transitional facility such as an [facility] will bit of best option for the patient at this time. We'll request a visit from the staff from the [facility] to assess patient Review of Systems Except as stated in HPI: all other systems reviewed are Neg Objective Alert: Yes [place]: Person, Place Mood: Depressed Affect: Flat Memory Intact: Comment (Appears impaired. Distracted) Hallucinations: Auditory (would not specify but hearing them) Delusions: Yes Delusion Type: Paranoid (responding to internal stimuli) Suicidal: Ideation (unable to assess) Homicidal: Ideation (unable to assess) Insight/Judgment Poor Vitals/IOs Vital Signs Date Time Temp Pulse Resp B/P Pulse Ox O2 Delivery O2 Flow Rate FiO2 10/25/16 06:00 97.1 112 18 130/70 96 Assessment & Plan Problem List: (1) History of traumatic brain injury ICD Code: Z87.820 (2) Paranoid type schizophrenia, chronic state ICD Code: F20.0 Assessment & Plan Estimated LOS: days patient calmer more appropriate his verbal output is markedly improved. Compliant medications. For now continue treatment. We'll see if we can have placement alternatives, assessment Justification for Cont. Inpt. At this time patient will decompensate then placed in a lower level of care Discharge Planning To be determined Request HC Surrog/Guard Advoc?: Yes Kennedy Hopkins MD October 25, 2016 14:09
[2016-10-25 17:32] VITALS: BP 125/92; PULSE 105; RESP 18; TEMP 97.9; O2SAT 97
[2016-10-25] MEDS: PRAVASTATIN SOD 20 MG TAB PO SCH (20:32)
[2016-10-25] MEDS: QUEtiapine FUMARATE 200 MG TAB PO SCH (20:32)
[2016-10-25] MEDS: LATANOPROST 0.005% OPHT SOLN 2.5 ML BTL EACH EYE SCH (20:44)
[2016-10-26 05:29] VITALS: BP 112/76; PULSE 102; RESP 18; TEMP 96.9; O2SAT 98
[2016-10-26] MEDS: BETAMETHASONE DIPROPIONATE 0.05% CREAM 15 GM TOPICAL SCH ×2 (09:00→21:00)
[2016-10-26] MEDS: DORZOLAMIDE 2% OPTH SOLN 200 DROP/10 ML BTLO EACH EYE SCH ×2 (09:00→21:00)
[2016-10-26] MEDS: DIVALPROEX SODIUM E.R. 500 MG TAB PO SCH ×2 (09:08→20:26)
[2016-10-26] MEDS: MULTIVITAMIN TAB PO SCH (09:08)
[2016-10-26] MEDS: THIAMINE HCL 100 MG TAB PO SCH (09:08)
[2016-10-26] MEDS: FOLIC ACID 1 MG TAB PO SCH (09:09)
[2016-10-26] MEDS: PHENYTOIN SODIUM 100 MG CAP PO SCH ×2 (09:09→20:25)
[2016-10-26] MEDS: risperiDONE 1 MG TAB PO SCH ×2 (09:09→20:25)
[2016-10-26] MEDS: levETIRAcetam 500 MG TAB PO SCH ×2 (09:09→20:25)
[2016-10-26] MEDS: lamoTRIgine 25 MG TAB PO SCH (09:09)
--- NOTE | 2016-10-26 11:07 | HHI.PYPN ---
Subjective Remarks Patient seen in day room with nurse Alva, chart reviewed. Patient continues calm cooperative with improved conversations, better eye contact, more fluid conversation. He also continues to be willing to be assessed for [facility] Review of Systems Except as stated in HPI: all other systems reviewed are Neg Objective Alert: Yes [place]: Person, Place Mood: Depressed Affect: Flat Memory Intact: Comment (Appears impaired. Distracted) Hallucinations: Auditory (would not specify but hearing them) Delusions: Yes Delusion Type: Paranoid (responding to internal stimuli) Suicidal: Ideation (unable to assess) Homicidal: Ideation (unable to assess) Insight/Judgment Poor Vitals/IOs Vital Signs Date Time Temp Pulse Resp B/P Pulse Ox O2 Delivery O2 Flow Rate FiO2 10/26/16 05:29 96.9 102 18 112/76 98 Assessment & Plan Problem List: (1) History of traumatic brain injury ICD Code: Z87.820 (2) Paranoid type schizophrenia, chronic state ICD Code: F20.0 Assessment & Plan Estimated LOS: days patient continues somewhat vigilant though improved, his speech fluency and rhythm are improved. Continue to work with placement issues Justification for Cont. Inpt. At this time patient will decompensate place to the lower level of care Discharge Planning To be determined Request HC Surrog/Guard Advoc?: Yes Kennedy Hopkins MD October 26, 2016 11:07
[2016-10-26 15:15] VITALS: BP 138/76; PULSE 107; RESP 18; TEMP 97.6; O2SAT 100
[2016-10-26] MEDS: PRAVASTATIN SOD 20 MG TAB PO SCH (20:25)
[2016-10-26] MEDS: QUEtiapine FUMARATE 200 MG TAB PO SCH (20:26)
[2016-10-26] MEDS: LATANOPROST 0.005% OPHT SOLN 2.5 ML BTL EACH EYE SCH (21:00)
[2016-10-27 06:07] VITALS: BP 129/78; PULSE 90; RESP 18; TEMP 98; O2SAT 96
[2016-10-27] MEDS: FOLIC ACID 1 MG TAB PO SCH (08:48)
[2016-10-27] MEDS: DIVALPROEX SODIUM E.R. 500 MG TAB PO SCH (08:48)
[2016-10-27] MEDS: MULTIVITAMIN TAB PO SCH (08:48)
[2016-10-27] MEDS: risperiDONE 1 MG TAB PO SCH (08:48)
[2016-10-27] MEDS: DORZOLAMIDE 2% OPTH SOLN 200 DROP/10 ML BTLO EACH EYE SCH (08:48)
[2016-10-27] MEDS: PHENYTOIN SODIUM 100 MG CAP PO SCH (08:48)
[2016-10-27] MEDS: levETIRAcetam 500 MG TAB PO SCH (08:48)
[2016-10-27] MEDS: BETAMETHASONE DIPROPIONATE 0.05% CREAM 15 GM TOPICAL SCH (08:49)
[2016-10-27] MEDS: THIAMINE HCL 100 MG TAB PO SCH (08:52)
[2016-10-27] MEDS ORDERED: SERO400T PO (13:34)
[2016-10-27] MEDS ORDERED: DILA100C PO ×2 (13:34)
[2016-10-27] MEDS ORDERED: DORZ2SOL EACH EYE (13:34)
[2016-10-27] MEDS ORDERED: THERTAB15 PO (13:34)
[2016-10-27] MEDS ORDERED: LAMO25 PO (13:34)
[2016-10-27] MEDS ORDERED: BETA0.052 TOPICAL (13:34)
[2016-10-27] MEDS ORDERED: OPTH EACH EYE (13:34)
[2016-10-27] MEDS ORDERED: KEPP750T PO (13:34)
[2016-10-27] MEDS ORDERED: GNP100TA3 PO (13:34)
[2016-10-27] MEDS ORDERED: DEPA500T3 PO (13:34)
[2016-10-27] MEDS ORDERED: Folic Acid PO (13:34)
[2016-10-27] MEDS ORDERED: DULO20 PO (13:34)
[2016-10-27] MEDS ORDERED: LATANOPROST 0.005% EACH EYE (13:34)
[2016-10-27] MEDS ORDERED: PRAV20TA PO (13:34)
[2016-10-27] MEDS ORDERED: risperiDONE PO (13:34)
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
== END 2016-10-27 14:40 | DRG 885 ==
LOC: NED 01:56 → NEDA 10:09 → H270 10:45
PROVIDERS: ADMIT Psychiatry & Neurology Psychiatry; ATTEND Psychiatry & Neurology Psychiatry
DX: F20.0 Paranoid schizophrenia (principal); F03.90 Unspecified dementia, unspecified severity, without behavioral disturbance, psychotic disturbance, mood disturbance, and anxiety; R47.01 Aphasia; E11.9 Type 2 diabetes mellitus without complications; I10 Essential (primary) hypertension; G40.909 Epilepsy, unspecified, not intractable, without status epilepticus; F32.9 Major depressive disorder, single episode, unspecified; F41.9 Anxiety disorder, unspecified; Z72.0 Tobacco use; F43.10 Post-traumatic stress disorder, unspecified; H40.9 Unspecified glaucoma; Z91.5 Personal history of self-harm; Z87.820 Personal history of traumatic brain injury; Z88.0 Allergy status to penicillin
CPT/HCPCS: 80048; 80053; 80185; 80186; 83036; 83690; 85025; 95819; 99284; J1200; J1630; J2060

== ENCOUNTER 2017-07-21 12:43 | Inpatient (IN) | payer BC, OTHER ==
[2017-07-21] VITALS (7 sets, daily range): BP systolic 127–146; BP diastolic 74–80; PULSE 78–102; RESP 16–18; TEMP 97–98.7; O2SAT 96–99
[~2017-07-21] VITALS: Ht 180.3 cm; Wt 110.0 kg
[~2017-07-21 12:43] MED LIST changes: +BETA0.052 TOPICAL; -DEPA250T2 PO; +DEPA500T3 PO; +DILA100C PO; -DILT180C56 PO; +DIVA500T3 PO; +DORZ2SOL EACH EYE; +DULO1CAP PO; +DULO20 PO; +Folic Acid PO; +KEPP750T PO; +LAMO25CH CHEW; +LATANOPROST 0.005% EACH EYE; -LEVA500T PO; -LEVE500 PO; -LOTR15T TOP; +LOVA20TA PO; +OPTH EACH EYE; -PHEN100 PO; +PRAV20TA PO; -RISP0.252 OR; +RISP2TAB37 PO; -RISPM2 PO; -SERO200T PO; +SERO400T PO; +THERTAB15 PO; +THIA100 PO; +risperiDONE PO
[2017-07-21] MEDS ORDERED: SODIUM CHLOR 0.9% 1000 ML INJ 1,000 ML IV ONE (13:15)
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
[2017-07-21] MEDS ORDERED: FOLI1TAB6 PO (13:39)
[2017-07-21] MEDS ORDERED: TRIAM.1%T TOPICAL (13:48)
[2017-07-21] MEDS ORDERED: LATA.005%O EACH EYE (13:48)
[2017-07-21] MEDS ORDERED: MUPI2OIN TOPICAL (13:48)
[2017-07-21] MEDS ORDERED: CIPR250T52 PO (13:48)
[2017-07-21] MEDS ORDERED: RISP3TAB2 PO (13:48)
--- NOTE | 2017-07-21 13:52 | RADRPT ---
EXAM DATE/TIME: 07/21/2017 13:36 [facility] COMPARISON: No previous studies available for comparison. INDICATIONS : Syncope. Altered mental status. MEDICAL HISTORY : Unobtainable. SURGICAL HISTORY : Unobtainable. ENCOUNTER: Initial ACUITY: 1 day PAIN SCORE: Non-responsive. LOCATION: Bilateral chest FINDINGS: Lungs are hypoaerated which accentuates interstitial markings. Cardiomediastinal contours are within normal limits given degree of distention. Osseous structures are intact. CONCLUSION: 1. Low lung volumes without acute abnormality. Froilan Pritchett MD on July 21, 2017 at 13:50 Board Certified Radiologist. This report was verified electronically.
[2017-07-21 14:01] LABS: AUTOMATED NEUTROPHIL # 3.6 TH/MM3 (1.8-7.7); BASOPHIL % 0.5 % (0.0-2.0); EOSINOPHIL % 0.7 % (0.0-4.0); HEMATOCRIT 47.3 % (39.0-51.0); HEMOGLOBIN 16.9 GM/DL (13.0-17.0); LYMPH % 26.9 % (9.0-44.0); LYMPHOCYTE # 1.5 TH/MM3 (1.0-4.8); MEAN CELL VOLUME 93.9 FL (80.0-100.0); MEAN CORPUSCULAR HEMOGLOBIN 33.5 PG (27.0-34.0); MEAN CORPUSCULAR HGB CONC 35.7 % (32.0-36.0); MEAN PLATELET VOLUME 7.9 FL (7.0-11.0); MONO % 9.5 % (0.0-8.0); MONOCYTE # 0.5 TH/MM3 (0-0.9); NEUT % 62.4 % (16.0-70.0); PLATELET COUNT 155 TH/MM3 (150-450); RED BLOOD COUNT 5.04 MIL/MM3 (4.50-5.90); RED CELL DISTRIBUTION WIDTH 13.4 % (11.6-17.2); WHITE BLOOD COUNT 5.7 TH/MM3 (4.0-11.0)
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
[2017-07-21 14:34] LABS: ALBUMIN 4.3 GM/DL (3.4-5.0); ALKALINE PHOSPHATASE 77 U/L (45-117); ALT (GPT) 19 U/L (12-78); AST (GOT) 17 U/L (15-37); BICARBONATE 29.4 MEQ/L (21.0-32.0); BLOOD UREA NITROGEN 13 MG/DL (7-18); CALCIUM 9.1 MG/DL (8.5-10.1); CHLORIDE 105 MEQ/L (98-107); CREATININE 0.74 MG/DL (0.60-1.30); GLOMERULAR FILTRATION RATE 112 ML/MIN (>89); GLUCOSE,RANDOM 102 MG/DL (74-106); MAGNESIUM 2.4 MG/DL (1.5-2.5); SODIUM (NA) 140 MEQ/L (136-145); TOTAL BILIRUBIN ADULT 0.3 MG/DL (0.2-1.0); TOTAL PROTEIN 7.3 GM/DL (6.4-8.2); TROPONIN I LESS THAN 0.02 NG/ML (0.02-0.05)
[2017-07-21 16:16] LABS: BILIRUBIN, URINE NEG (NEG); BLOOD, URINE NEG (NEG); GLUCOSE,URINE NEG (NEG); KETONE, URINE TRACE mg/dL (NEG); MUCUS URINE FEW /lpf (OCC); NITRITE,URINE NEG (NEG); SPERM, URINE RARE; URINE COLOR YELLOW (YELLW/STRAW); URINE LEUKOCYTE ESTERASE NEG (NEG)
[2017-07-21] MEDS ORDERED: BISACODYL 10 MG SUPP RECTAL PRN (17:45)
[2017-07-21] MEDS ORDERED: ACETAMINOPHEN 325 MG TAB PO PRN (17:45)
[2017-07-21] MEDS ORDERED: MAGNESIUM HYDROXIDE SUSP 30 ML CUP PO PRN (17:45)
[2017-07-21] MEDS ORDERED: SODIUM CHLORIDE 0.9% FLUSH 10 ML FLUSH IV FLUSH PRN (17:45)
[2017-07-21] MEDS ORDERED: SENNOSIDES 8.6 MG TAB PO PRN (17:45)
[2017-07-21] MEDS ORDERED: ONDANSETRON HCL 4 MG/2 ML VIAL IVP PRN (17:45)
[2017-07-21] MEDS ORDERED: NALOXONE HCL 0.4 MG/ML AMP IV PUSH PRN (17:45)
[2017-07-21] MEDS ORDERED: LACTULOSE SYRUP 20 GM/30 ML CUP PO PRN (17:45)
[2017-07-21] MEDS ORDERED: SELENIUM SULFIDE 1% SHAMPOO 207 ML BOTTLE TOPICAL ONE (18:15)
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
[2017-07-21] MEDS: SODIUM CHLOR 0.9% 1000 ML INJ 1,000 ML IV SCH (18:46)
[2017-07-21] MEDS ORDERED: levETIRAcetam 250 MG TAB PO SCH (21:00)
[2017-07-21] MEDS ORDERED: PHENYTOIN SODIUM 100 MG CAP PO SCH (21:00)
[2017-07-21] MEDS: ENOXAPARIN SODIUM 40 MG/0.4 ML SYRINGE SQ SCH (21:48)
[2017-07-21] MEDS: LATANOPROST 0.005% OPHT SOLN 2.5 ML BTL EACH EYE SCH (21:48)
[2017-07-21] MEDS: SODIUM CHLORIDE 0.9% FLUSH 10 ML FLUSH IV FLUSH SCH (21:48)
[2017-07-21] MEDS: DORZOLAMIDE 2% OPTH SOLN 200 DROP/10 ML BTLO EACH EYE SCH (21:48)
[2017-07-21] MEDS: TRIAMCINOLONE ACETONIDE 0.1% CREAM 15 GM TOPICAL SCH (21:49)
[2017-07-21] MEDS: PRAVASTATIN SOD 20 MG TAB PO SCH (22:58)
[2017-07-21] MEDS: DIVALPROEX SODIUM E.R. 500 MG TAB PO SCH (22:58)
[2017-07-21] MEDS: DOCUSATE SODIUM 50 MG/SENNA 8.6 MG TAB PO SCH (22:58)
[2017-07-21] MEDS: DULoxetine HCl DR 20 MG CAP PO SCH (22:58)
[2017-07-22] VITALS (8 sets, daily range): BP systolic 129–138; BP diastolic 60–85; PULSE 78–95; RESP 16–20; TEMP 97.3–99.3; O2SAT 94–95
[2017-07-22] MEDS ORDERED: SELENIUM SULFIDE 2.5% LOTION 120 ML BTL TOPICAL ONE (00:15)
[2017-07-22] MEDS: SODIUM CHLORIDE 0.9% FLUSH 10 ML FLUSH IV FLUSH SCH ×2 (09:00→21:00)
[2017-07-22] MEDS ORDERED: PHENYTOIN SODIUM 100 MG CAP PO SCH (09:00)
[2017-07-22] MEDS: SODIUM CHLOR 0.9% 1000 ML INJ 1,000 ML IV SCH ×2 (09:43→21:00)
[2017-07-22] MEDS: DORZOLAMIDE 2% OPTH SOLN 200 DROP/10 ML BTLO EACH EYE SCH ×2 (09:44→21:02)
[2017-07-22] MEDS: DIVALPROEX SODIUM E.R. 500 MG TAB PO SCH ×3 (09:45→18:24)
[2017-07-22] MEDS: FOLIC ACID 1 MG TAB PO SCH (09:45)
[2017-07-22] MEDS: levETIRAcetam 500 MG TAB PO SCH ×2 (09:45→21:02)
[2017-07-22] MEDS: DOCUSATE SODIUM 50 MG/SENNA 8.6 MG TAB PO SCH ×2 (09:45→21:02)
[2017-07-22] MEDS: DULoxetine HCl DR 20 MG CAP PO SCH ×2 (09:45→21:03)
[2017-07-22] MEDS: TRIAMCINOLONE ACETONIDE 0.1% CREAM 15 GM TOPICAL SCH ×2 (09:46→21:02)
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
[2017-07-22 11:48] LABS: AUTOMATED NEUTROPHIL # 6.8 TH/MM3 (1.8-7.7); BASOPHIL % 0.2 % (0.0-2.0); EOSINOPHIL % 0.2 % (0.0-4.0); HEMATOCRIT 44.1 % (39.0-51.0); HEMOGLOBIN 15.7 GM/DL (13.0-17.0); LYMPH % 15.5 % (9.0-44.0); LYMPHOCYTE # 1.3 TH/MM3 (1.0-4.8); MEAN CELL VOLUME 93.8 FL (80.0-100.0); MEAN CORPUSCULAR HEMOGLOBIN 33.5 PG (27.0-34.0); MEAN CORPUSCULAR HGB CONC 35.7 % (32.0-36.0); MEAN PLATELET VOLUME 7.9 FL (7.0-11.0); MONO % 6.6 % (0.0-8.0); MONOCYTE # 0.6 TH/MM3 (0-0.9); NEUT % 77.5 % (16.0-70.0); PLATELET COUNT 158 TH/MM3 (150-450); WHITE BLOOD COUNT 8.7 TH/MM3 (4.0-11.0)
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
[2017-07-22] MEDS ORDERED: FOSPHENYTOIN SODIUM 500 MG PE/10 ML VIAL IV ONE (12:00)
[2017-07-22 12:07] LABS: ALBUMIN 3.8 GM/DL (3.4-5.0); ALT (GPT) 17 U/L (12-78); AST (GOT) 12 U/L (15-37); BICARBONATE 28.5 MEQ/L (21.0-32.0); BLOOD UREA NITROGEN 11 MG/DL (7-18); CALCIUM 8.5 MG/DL (8.5-10.1); CHLORIDE 105 MEQ/L (98-107); CREATININE 0.63 MG/DL (0.60-1.30); GLOMERULAR FILTRATION RATE 135 ML/MIN (>89); GLUCOSE,RANDOM 151 MG/DL (74-106); SODIUM (NA) 140 MEQ/L (136-145)
[2017-07-22 12:09] LABS: ALKALINE PHOSPHATASE 73 U/L (45-117); TOTAL BILIRUBIN ADULT 0.4 MG/DL (0.2-1.0); TOTAL PROTEIN 6.5 GM/DL (6.4-8.2)
--- NOTE | 2017-07-22 12:36 | MB ---
cc: MARY GRACE JAY M.D. DATE OF CONSULTATION: 07/22/2017. ADDENDUM Since the original dictation, I did have a chance to review the EEG, which does show fairly frequent intermittent sharp activity of the left hemisphere, left parietal and temporal area, consistent with intermittent seizures. Therefore it is probable that his mental status change is due to breakthrough seizures. For this reason, would recommend giving him additional doses of phenytoin, fosphenytoin and valproic acid to raise his levels and will repeat the EEG. MD LIZZETTE Foster/UMA /11:56 AM /12:33 PM
[2017-07-22] MEDS: TAMSULOSIN HCL 0.4 MG CAP PO SCH (12:47)
[2017-07-22] MEDS ORDERED: FOSPHENYTOIN INJ 500 MGPE in SODIUM CHLORIDE 0.9% INJ 50 ML IV ONE (13:00)
--- NOTE | 2017-07-22 13:06 | MG ---
cc: MARY GRACE JAY M.D. Lab No: [id number] Date: 07/22/2017 Age: Sex: M Race: TECHNIQUE: 17 channel EEG. DESCRIPTION: The background rhythm reveals mild slowing in the theta range at roughly 6 Hz. There is fairly frequent sharp activity identified over the left parietal and left temporal area. There is some muscle artifact present as well. Sharp activity occurs with variable frequency once every 5 to 10 seconds. Sometimes there are pauses of 20 to 30 seconds between. No other lateralizing features are identified. Photic results in a fairly well-developed driving response. INTERPRETATION: Abnormal study. Epileptiform discharges identified in the left hemisphere periodically. MD LIZZETTE Foster/UMA /12:57 PM /1:00 PM
[2017-07-22] MEDS: PHENYTOIN SODIUM 100 MG CAP PO SCH ×2 (14:05→21:02)
--- NOTE | 2017-07-22 15:25 | EKG ---
Date Performed: 07/21/2017 Time Performed: 14:45:44 PTAGE: 51 years EKG: Sinus rhythm WITH SINUS ARRHYTHMIA POSSIBLE RIGHT VENTRICULAR HYPERTROPHY NONSPECIFIC T-WAVE ABNORMALITY Since pr evious tracing, no significant change noted ABNORMAL ECG PREVIOUS TRACING : 11/29/2012 08.34 DOCTOR: Miguel Angel Wade Interpretating Date/Time 07/22/2017 15:23:23
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
[2017-07-22] MEDS: ENOXAPARIN SODIUM 40 MG/0.4 ML SYRINGE SQ SCH (21:00)
[2017-07-22] MEDS: LATANOPROST 0.005% OPHT SOLN 2.5 ML BTL EACH EYE SCH (21:01)
[2017-07-22] MEDS: PRAVASTATIN SOD 20 MG TAB PO SCH (21:02)
[2017-07-23] VITALS (10 sets, daily range): BP systolic 115–141; BP diastolic 77–98; PULSE 79–98; RESP 16–20; TEMP 97–98.7; O2SAT 91–97
[2017-07-23] MEDS: PHENYTOIN SODIUM 100 MG CAP PO SCH ×3 (06:25→22:16)
[2017-07-23] MEDS: SODIUM CHLORIDE 0.9% FLUSH 10 ML FLUSH IV FLUSH SCH ×2 (09:00→21:00)
[2017-07-23] MEDS: DORZOLAMIDE 2% OPTH SOLN 200 DROP/10 ML BTLO EACH EYE SCH ×2 (09:39→22:12)
[2017-07-23] MEDS: TRIAMCINOLONE ACETONIDE 0.1% CREAM 15 GM TOPICAL SCH ×2 (09:40→22:17)
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
[2017-07-23] MEDS: SODIUM CHLOR 0.9% 1000 ML INJ 1,000 ML IV SCH ×2 (09:43→22:29)
[2017-07-23] MEDS: levETIRAcetam 500 MG TAB PO SCH ×2 (09:45→22:16)
[2017-07-23] MEDS: FOLIC ACID 1 MG TAB PO SCH (09:46)
[2017-07-23] MEDS: DOCUSATE SODIUM 50 MG/SENNA 8.6 MG TAB PO SCH ×2 (09:46→22:17)
[2017-07-23] MEDS: lamoTRIgine 25 MG TAB PO SCH (09:46)
[2017-07-23] MEDS: TAMSULOSIN HCL 0.4 MG CAP PO SCH (09:46)
[2017-07-23] MEDS: DIVALPROEX SODIUM E.R. 500 MG TAB PO SCH ×3 (09:46→18:17)
[2017-07-23] MEDS: DULoxetine HCl DR 20 MG CAP PO SCH ×2 (09:46→22:16)
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
[2017-07-23] MEDS: ENOXAPARIN SODIUM 40 MG/0.4 ML SYRINGE SQ SCH (22:11)
[2017-07-23] MEDS: LATANOPROST 0.005% OPHT SOLN 2.5 ML BTL EACH EYE SCH (22:13)
[2017-07-23] MEDS: PRAVASTATIN SOD 20 MG TAB PO SCH (22:17)
[2017-07-23] MEDS: clonazePAM 0.5 MG TAB PO SCH (22:17)
[2017-07-24] VITALS (9 sets, daily range): BP systolic 138–177; BP diastolic 80–93; PULSE 68–105; RESP 18–20; TEMP 98–99.4; O2SAT 91–97
[2017-07-24] MEDS: PHENYTOIN SODIUM 100 MG CAP PO SCH ×3 (05:52→23:29)
[2017-07-24] MEDS: clonazePAM 0.5 MG TAB PO SCH ×3 (05:52→23:28)
[2017-07-24 06:04] LABS: PHENYTOIN (DILANTIN) 13.2 MCG/ML (10.0-20.0)
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
[2017-07-24] MEDS: SODIUM CHLORIDE 0.9% FLUSH 10 ML FLUSH IV FLUSH SCH ×2 (09:00→23:26)
--- NOTE | 2017-07-24 09:57 | HHI.FF ---
Face to Face Verification Diagnosis: (1) Seizures (2) Urinary retention (3) Marroquin catheter in place (4) Decreased activities of daily living (ADL) (5) History of traumatic brain injury Home Health Nursing Order: Medical education Signs/symptoms of disease process Nursing assessment with vital signs Marroquin catheter maintenance (Marroquin to be removed in 1 week, on 07/30) Home Health Aide Order: To Assist In: Bathing and personal care, file keeper and meal prep I have seen patient El Dasilva on 07/24/17. My clinical findings support the need for the requested home health care services because: Ltd mobility - disease progression Deconditioned w/ increased weakness Med compliance is questionable Limited ability to care for self Impaired cognition/judgement I certify that my clinical findings support that this patient is homebound because: Impaired cognitive ability/safety Unsteady gait/balance Unsafe to leave home unassisted Unable to use public transportation Ashley Thibodeaux PA-C Jul 24, 2017 9:57 am
[2017-07-24] MEDS: levETIRAcetam 500 MG TAB PO SCH ×2 (10:03→23:27)
[2017-07-24] MEDS: FOLIC ACID 1 MG TAB PO SCH (10:03)
[2017-07-24] MEDS: DULoxetine HCl DR 20 MG CAP PO SCH ×2 (10:03→23:27)
[2017-07-24] MEDS: DOCUSATE SODIUM 50 MG/SENNA 8.6 MG TAB PO SCH ×2 (10:03→23:27)
[2017-07-24] MEDS: DIVALPROEX SODIUM E.R. 500 MG TAB PO SCH ×3 (10:03→23:29)
[2017-07-24] MEDS: TAMSULOSIN HCL 0.4 MG CAP PO SCH ×2 (10:03→23:27)
[2017-07-24] MEDS: DORZOLAMIDE 2% OPTH SOLN 200 DROP/10 ML BTLO EACH EYE SCH ×2 (10:05→23:28)
[2017-07-24] MEDS: TRIAMCINOLONE ACETONIDE 0.1% CREAM 15 GM TOPICAL SCH ×2 (10:05→23:28)
[2017-07-24 11:38] LABS: LEVETIRACETAM 5.2 mcg/mL (12.0 - 46.0)
[2017-07-24] MEDS ORDERED: PHENYTOIN SODIUM 100 MG CAP PO ONE (13:00)
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
[2017-07-24] MEDS: SODIUM CHLOR 0.9% 1000 ML INJ 1,000 ML IV SCH (18:38)
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
[2017-07-24] MEDS: ENOXAPARIN SODIUM 40 MG/0.4 ML SYRINGE SQ SCH (23:26)
[2017-07-24] MEDS: PRAVASTATIN SOD 20 MG TAB PO SCH (23:27)
[2017-07-24] MEDS: risperiDONE 3 MG TAB PO SCH (23:28)
[2017-07-24] MEDS: LATANOPROST 0.005% OPHT SOLN 2.5 ML BTL EACH EYE SCH (23:28)
[2017-07-24] MEDS: QUEtiapine FUMARATE 200 MG TAB PO SCH (23:28)
[2017-07-25] VITALS (14 sets, daily range): BP systolic 109–140; BP diastolic 67–88; PULSE 94–128; RESP 18–20; TEMP 96.4–99.4; O2SAT 91–95
[2017-07-25] MEDS: DIVALPROEX SODIUM E.R. 500 MG TAB PO SCH ×4 (05:46→22:40)
[2017-07-25] MEDS: PHENYTOIN SODIUM 100 MG CAP PO SCH ×4 (05:46→22:41)
[2017-07-25] MEDS: clonazePAM 0.5 MG TAB PO SCH ×3 (05:46→22:40)
[2017-07-25] MEDS: SODIUM CHLOR 0.9% 1000 ML INJ 1,000 ML IV SCH ×2 (05:47→13:25)
[2017-07-25 06:52] LABS: AUTOMATED NEUTROPHIL # 5.9 TH/MM3 (1.8-7.7); BASOPHIL % 0.3 % (0.0-2.0); EOSINOPHIL # 0.2 TH/MM3 (0-0.4); EOSINOPHIL % 1.7 % (0.0-4.0); HEMATOCRIT 42.8 % (39.0-51.0); HEMOGLOBIN 15.6 GM/DL (13.0-17.0); LYMPH % 20.2 % (9.0-44.0); LYMPHOCYTE # 1.8 TH/MM3 (1.0-4.8); MEAN CELL VOLUME 92.3 FL (80.0-100.0); MEAN CORPUSCULAR HEMOGLOBIN 33.7 PG (27.0-34.0); MONO % 9.7 % (0.0-8.0); MONOCYTE # 0.8 TH/MM3 (0-0.9); NEUT % 68.1 % (16.0-70.0); PLATELET COUNT 152 TH/MM3 (150-450); RED BLOOD COUNT 4.63 MIL/MM3 (4.50-5.90); WHITE BLOOD COUNT 8.7 TH/MM3 (4.0-11.0)
[2017-07-25 06:56] LABS: MEAN CORPUSCULAR HGB CONC 36.6 % (32.0-36.0)
[2017-07-25 07:15] LABS: BICARBONATE 26.8 MEQ/L (21.0-32.0); CALCIUM 8.1 MG/DL (8.5-10.1); CREATININE 0.55 MG/DL (0.60-1.30)
[2017-07-25 07:17] LABS: PHENYTOIN (DILANTIN) 11.4 MCG/ML (10.0-20.0)
--- NOTE | 2017-07-25 07:34 | MG ---
cc: RADHA HAMPTON M.D. Lab No: [id number]____ Date: 07/24/2017 Age: 51 Sex: M Race: __ REFERRING PHYSICIAN Dr. Griggs INDICATIONS An EEG was obtained on this 51-year-old patient being evaluated for altered mentation. MEDICATIONS 1. Klonopin 2. Lamictal 3. Phenytoin 4. Depakote 5. Keppra 6. Cymbalta DESCRIPTION The patient is described as awake and asleep. There are low amplitude beta rhythms diffusely and some low to mid amplitude alpha rhythms in the central and posterior head regions. The patient awakens and some alpha rhythms dominating the central and posterior head regions along with mild artifact. Then the patient falls back asleep. Photic stimulation disclosed no significant trends. INTERPRETATION Normal predominantly asleep EEG. MD STEPHEN Silva/RADHIKA /6:43 AM /7:11 AM
[2017-07-25] MEDS: DORZOLAMIDE 2% OPTH SOLN 200 DROP/10 ML BTLO EACH EYE SCH ×2 (08:45→22:42)
[2017-07-25] MEDS: TRIAMCINOLONE ACETONIDE 0.1% CREAM 15 GM TOPICAL SCH ×2 (08:45→22:41)
[2017-07-25] MEDS: TAMSULOSIN HCL 0.4 MG CAP PO SCH ×2 (08:46→22:39)
[2017-07-25] MEDS: DULoxetine HCl DR 20 MG CAP PO SCH ×2 (08:46→22:39)
[2017-07-25] MEDS: risperiDONE 3 MG TAB PO SCH ×2 (08:46→22:40)
[2017-07-25] MEDS: lamoTRIgine 25 MG TAB PO SCH (08:46)
[2017-07-25] MEDS: levETIRAcetam 500 MG TAB PO SCH ×2 (08:46→22:39)
[2017-07-25] MEDS: SODIUM CHLORIDE 0.9% FLUSH 10 ML FLUSH IV FLUSH SCH ×2 (08:46→22:41)
[2017-07-25] MEDS: FOLIC ACID 1 MG TAB PO SCH (08:46)
[2017-07-25] MEDS: DOCUSATE SODIUM 50 MG/SENNA 8.6 MG TAB PO SCH ×2 (08:46→22:39)
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
[2017-07-25 09:50] LABS: MONOCYTES 7 % (0-8); POLYS (SEG NEUTROPHILS) 69 % (16-70)
[2017-07-25 09:51] LABS: LYMPHOCYTES 22 % (9-44)
[2017-07-25] MEDS ORDERED: POTASSIUM CHLORIDE 20 MEQ CONTROLLED RELEASE TAB PO ONE (13:00)
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
[2017-07-25] MEDS: ENOXAPARIN SODIUM 40 MG/0.4 ML SYRINGE SQ SCH (22:39)
[2017-07-25] MEDS: PRAVASTATIN SOD 20 MG TAB PO SCH (22:40)
[2017-07-25] MEDS: QUEtiapine FUMARATE 200 MG TAB PO SCH (22:40)
[2017-07-25] MEDS: LATANOPROST 0.005% OPHT SOLN 2.5 ML BTL EACH EYE SCH (22:42)
[2017-07-26] VITALS (7 sets, daily range): BP systolic 127–139; BP diastolic 71–89; PULSE 98–111; RESP 19–20; TEMP 98.2–99.8; O2SAT 93–96
[2017-07-26] MEDS: SODIUM CHLOR 0.9% 1000 ML INJ 1,000 ML IV SCH (03:28)
[2017-07-26] MEDS: DIVALPROEX SODIUM E.R. 500 MG TAB PO SCH ×2 (06:03→11:53)
[2017-07-26] MEDS: clonazePAM 0.5 MG TAB PO SCH (06:03)
[2017-07-26] MEDS: PHENYTOIN SODIUM 100 MG CAP PO SCH ×2 (06:03→11:53)
[2017-07-26] MEDS ORDERED: LORazepam 2 MG/ML VIAL IV PUSH PRN (06:15)
[2017-07-26] MEDS ORDERED: NS + KCL 20 MEQ INJ 1,000 ML IV SCH (06:15)
--- NOTE | 2017-07-26 06:17 | HHI.FF ---
Face to Face Verification Diagnosis: (1) Seizures (2) Urinary retention Physical Therapy Order: Evaluate and Treat, Improve ambulation, Strength and gait training I have seen patient El Dasilva on 07/26/17. My clinical findings support the need for the requested home health care services because: Deconditioned w/ increased weakness I certify that my clinical findings support that this patient is homebound because: Unsafe to leave home unassisted Need for psychosocial assistance Shawn Bhat MD Jul 26, 2017 06:16
[2017-07-26 07:31] LABS: BICARBONATE 27.6 MEQ/L (21.0-32.0); CALCIUM 8.2 MG/DL (8.5-10.1); CREATININE 0.48 MG/DL (0.60-1.30)
[2017-07-26 07:33] LABS: PHENYTOIN (DILANTIN) 11.4 MCG/ML (10.0-20.0)
[2017-07-26] MEDS: DULoxetine HCl DR 20 MG CAP PO SCH (09:09)
[2017-07-26] MEDS: TAMSULOSIN HCL 0.4 MG CAP PO SCH (09:09)
[2017-07-26] MEDS: DOCUSATE SODIUM 50 MG/SENNA 8.6 MG TAB PO SCH (09:10)
[2017-07-26] MEDS: FOLIC ACID 1 MG TAB PO SCH (09:10)
[2017-07-26] MEDS: DORZOLAMIDE 2% OPTH SOLN 200 DROP/10 ML BTLO EACH EYE SCH (09:10)
[2017-07-26] MEDS: risperiDONE 3 MG TAB PO SCH (09:10)
[2017-07-26] MEDS: levETIRAcetam 500 MG TAB PO SCH (09:10)
[2017-07-26] MEDS: TRIAMCINOLONE ACETONIDE 0.1% CREAM 15 GM TOPICAL SCH (09:10)
[2017-07-26] MEDS: SODIUM CHLORIDE 0.9% FLUSH 10 ML FLUSH IV FLUSH SCH (09:10)
[2017-07-26] MEDS ORDERED: DIVA500T3 PO (10:39)
[2017-07-26] MEDS ORDERED: TAMS5CAP PO (10:39)
[2017-07-26] MEDS ORDERED: CLON.5 PO (10:39)
[2017-07-26] MEDS ORDERED: DILA100C PO (10:39)
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
[2017-07-26 11:19] LABS: AUTOMATED NEUTROPHIL # 4.6 TH/MM3 (1.8-7.7); BASOPHIL % 0.2 % (0.0-2.0); EOSINOPHIL # 0.1 TH/MM3 (0-0.4); EOSINOPHIL % 1.2 % (0.0-4.0); HEMATOCRIT 41.9 % (39.0-51.0); LYMPH % 15.8 % (9.0-44.0); MEAN CELL VOLUME 93.5 FL (80.0-100.0); MEAN CORPUSCULAR HEMOGLOBIN 33.4 PG (27.0-34.0); MEAN CORPUSCULAR HGB CONC 35.7 % (32.0-36.0); MEAN PLATELET VOLUME 8.5 FL (7.0-11.0); MONO % 8.1 % (0.0-8.0); MONOCYTE # 0.5 TH/MM3 (0-0.9); NEUT % 74.7 % (16.0-70.0); PLATELET COUNT 145 TH/MM3 (150-450); RED BLOOD COUNT 4.48 MIL/MM3 (4.50-5.90); RED CELL DISTRIBUTION WIDTH 12.8 % (11.6-17.2); WHITE BLOOD COUNT 6.2 TH/MM3 (4.0-11.0)
[2017-07-27 13:52] LABS: LAMOTRIGINE LESS THAN 0.5 mcg/mL (4.0-18.0)
== END 2017-07-26 15:34 | DRG 100 ==
LOC: NEPE 12:43 → NEDA 15:43 → NEPFCDU 18:16 → OBSVTOIN 07-25 16:35
PROVIDERS: ADMIT Hospitalist; ATTEND Hospitalist
DX: G40.909 Epilepsy, unspecified, not intractable, without status epilepticus (principal); G93.40 Encephalopathy, unspecified; F20.0 Paranoid schizophrenia; Z87.820 Personal history of traumatic brain injury; I10 Essential (primary) hypertension; E66.9 Obesity, unspecified; H40.9 Unspecified glaucoma; Z68.33 Body mass index [BMI] 33.0-33.9, adult; E11.9 Type 2 diabetes mellitus without complications; E78.5 Hyperlipidemia, unspecified; L21.9 Seborrheic dermatitis, unspecified; Z66 Do not resuscitate; R33.8 Other retention of urine
CPT/HCPCS: 70450; 71045; 80048; 80053; 80164; 80175; 80177; 80185; 80307; 81001; 82140; 82550; 82607; 82948; 83605; 83690; 83735; 84443; 84484; 85007; 85025; 85027; 93005; 95819; 96361; 96365; 96372; G0378; G8987-GO; G8987-GP; G8988-GO; G8988-GP; G9168-GN; G9169-GN; G9170-GN; J1650; J3480; J7030; Q2009